=== PATIENT | male | born 1985 | race Caucasian/White ===

== ENCOUNTER → 2017-05-15 | Outpatient (CLI) | payer BC ==
[2017-05-15 10:26] LABS: BASO % 0.3 %; BASO ABS # 0.02 K/uL (0-0.2); EOS % 2.4 %; EOS ABS # 0.14 K/uL (0-0.5); HEMATOCRIT 44.6 % (42-52); HEMOGLOBIN 15.3 g/dL (14.0-18.0); IG# 0.02 K/uL (0.00-0.02); LYMPH % 35.2 %; LYMPH ABS # 2.06 K/uL (1.2-3.4); MEAN CORPUSCULAR HEMOGLOBIN 31.2 pg (25-34); MEAN CORPUSCULAR HGB CONC 34.3 g/dl (32-36); MONO % 9.9 %; MONO ABS # 0.58 K/uL (0.11-0.59); NEUT % 51.9 %; NEUT ABS # 3.04 K/uL (1.4-6.5); PLATELET COUNT 237 K/uL (130-400); RED CELL DISTRIBUTION WIDTH CV 12.5 % (11.5-14.5); RED CELL DISTRIBUTION WIDTH SD 41.6 fL (36.4-46.3); WHITE BLOOD COUNT 5.86 K/uL (4.8-10.8)
[2017-05-15 10:37] LABS: ALBUMIN 4.3 gm/dl (3.4-5.0); ALT/SGPT 35 U/L (12-78); BLOOD UREA NITROGEN 16 mg/dl (7-18); CALCIUM 9.1 mg/dl (8.5-10.1); CARBON DIOXIDE 27 mmol/L (21-32); CHOLESTEROL 234 mg/dl (0-200); CREATININE 1.15 mg/dl (0.60-1.40); GLUCOSE 89 mg/dl (70-99); POTASSIUM 4.2 mmol/L (3.5-5.1); SODIUM 137 mmol/L (136-145)
[2017-05-15 10:40] LABS: ALKALINE PHOSPHATASE 102 U/L (45-117); AST/SGOT 20 U/L (15-37); LDL CHOLESTEROL CALCULATED 158 mg/dl; TOTAL PROTEIN 7.8 gm/dl (6.4-8.2)
== END | disposition home or self-care (01) ==
LOC: C.LAB1850 09:16
PROVIDERS: ATTEND Internal Medicine
DX: R22.1 Localized swelling, mass and lump, neck (principal); E78.5 Hyperlipidemia, unspecified

== ENCOUNTER → 2017-05-18 | Outpatient (CLI) | payer BC ==
--- NOTE | 2017-05-18 10:18 | DIAGNOSTIC IMAGING REPORT ---
NECK ULTRASOUND CLINICAL HISTORY: Left-sided neck lump. COMPARISON STUDY: None. TECHNIQUE: Sonography of the neck at site of palpable abnormality was performed. FINDINGS: Note is made of a 2.3 x 1.7 x 1.3 cm oval-shaped hypoechoic left neck mass within level 2 which represents the palpable abnormality. This is immediately inferior to the left angle of the mandible. This abnormality contains color flow. This may reflect an enlarged lymph node with markedly thickened cortex or a salivary gland lesion as it is in close proximity to the left submandibular and parotid glands. IMPRESSION: 2.3 x 1.7 x 1.3 cm hypoechoic left neck mass which represents the palpable abnormality. The sonographic appearance is nonspecific and this could reflect an abnormal lymph node or salivary gland lesion. If this represents a lymph node, differential considerations include reactive lymphadenopathy or a neoplastic process. Ultrasound-guided fine needle aspiration is recommended. Electronically signed by: Kris Ibarra M.D. 05/18/2017 10:16 AM Dictated Date/Time: 05/18/2017 10:11 AM
== END | disposition home or self-care (01) ==
LOC: C.ULTR 09:37
PROVIDERS: ATTEND Internal Medicine
DX: R22.1 Localized swelling, mass and lump, neck (principal)

== ENCOUNTER → 2017-05-21 | Outpatient (CLI) | payer BC ==
--- NOTE | 2017-05-24 08:19 | DIAGNOSTIC IMAGING REPORT ---
GUIDANCE NEEDLE PLACEMENT CLINICAL HISTORY: ABNORMAL ULTRASOUND,SWELLING IN NECK mass TECHNIQUE: Ultrasound-guided fine-needle aspiration COMPARISON STUDY: 05/18/2017 FINDINGS: Following informed consent and description of procedure, 2 passes with a 25-gauge needle were made to the left submandibular mass. Pathology indicated adequate tissue. There are no complications. IMPRESSION: Successful submandibular fine-needle aspiration. No complications. The above report was generated using voice recognition software. It may contain grammatical, syntax or spelling errors. Electronically signed by: Ousmane Mcnamara M.D. 05/24/2017 8:18 AM Dictated Date/Time: 05/24/2017 8:17 AM
== END | disposition home or self-care (01) ==
LOC: C.ULTR 12:24
PROVIDERS: ATTEND Internal Medicine
DX: R22.1 Localized swelling, mass and lump, neck (principal)